=== PATIENT | male | born 1950 | race African-American/Black ===

== ENCOUNTER 2019-05-05 05:16 | Day surgery (SDC) ==
[2019-04-29 13:09] LABS: HEMATOCRIT 47.7 % (42.0-52.0); HEMOGLOBIN 15.5 g/dL (14.0-18.0); MCH 30.5 PG (27-31); MCHC 32.5 g/dL (33-37); MCV 93.7 FL (81-99); MPV 9.4 FL (7.4-10.4); RBC 5.09 XMIL (4.7-6.1); RDW 13.8 % (11.5-14.5); WBC 5.62 X1000 (4.8-10.8)
[2019-04-29 13:24] LABS: AGAP 13; BUN 7 mg/dL (8-22); CALCIUM 10.2 mg/dL (8.8-10.2); CHLORIDE 99 mmol/L (98-107); COSMO 277; CREATININE 0.8 mg/dL (0.7-1.2); ESTIMATED GFR > 60; GLUCOSE 128 mg/dL (70-104); POTASSIUM 4.2 mmol/L (3.5-5.1); SODIUM 139 mmol/L (136-145); TCO2 27 mmol/L (25-35)
[2019-05-05] MEDS ORDERED: KEFZOL 1 GM/D5W 2 GM/100 ML IVPB ONE (05:59)
[2019-05-05] MEDS ORDERED: LR 1,000 ML ONE ×2 (05:59→06:30)
[2019-05-05] MEDS ORDERED: PEPCID ONE (05:59)
[2019-05-05] MEDS ORDERED: REGLAN ONE (05:59)
[2019-05-05] MEDS ORDERED: B & O 15A SUPP ONE (06:30)
[2019-05-05] MEDS ORDERED: DIPRIVAN 1% ONE (06:30)
[2019-05-05] MEDS ORDERED: MARCAINE 0.25% PF/EPI 1:200,000 ONE (06:30)
[2019-05-05] MEDS ORDERED: ROBINUL ONE ×4 (06:31→11:09)
[2019-05-05] MEDS ORDERED: XYLOCAINE-MPF 2% ONE (06:31)
[2019-05-05] MEDS ORDERED: QUELICIN (DOSE) ONE (06:31)
[2019-05-05] MEDS ORDERED: VENTOLIN HFA ONE (06:55)
[2019-05-05] MEDS ORDERED: NORCURON ONE ×2 (06:58→08:31)
[2019-05-05] MEDS ORDERED: TORADOL ONE (07:00)
[2019-05-05] MEDS ORDERED: DECADRON ONE (07:00)
[2019-05-05] MEDS ORDERED: OFIRMEV 1000 MG/ISOTONIC SOLN 1,000 MG/100 ML BOTTLE ONE (07:00)
[2019-05-05] MEDS ORDERED: ZOFRAN ONE (07:00)
[2019-05-05] MEDS ORDERED: FENTANYL ONE (07:43)
[2019-05-05] MEDS ORDERED: NEOSTIGMINE ONE (08:43)
[2019-05-05 11:45] LABS: URINE SOURCE CATH
[2019-05-05] MEDS ORDERED: DUONEB (A & A) INH ONE (11:49)
[2019-05-05] MEDS: DILAUDID ONE ×3 (11:57→18:12)
[2019-05-05 11:59] LABS: BILIRUBIN URINE NEGATIVE (NEGATIVE); BLOOD URINE TRACE (NEGATIVE); COLOR YELLOW; GLUCOSE URINE NEGATIVE (NEGATIVE); KETONE URINE NEGATIVE (NEGATIVE); LEUKOCYTES URINE NEGATIVE (NEGATIVE); NITRITE URINE NEGATIVE (NEGATIVE); PROTEIN URINE NEGATIVE (NEGATIVE); SP GRAVITY URINE 1.016; TURBIDITY URINE CLEAR (CLEAR); UROBILINOGEN URINE NORMAL (NORMAL)
[2019-05-05 12:00] LABS: UR EPITHELIAL CELLS <10 /HPF (<10); URINE BACTERIA NEGATIVE /HPF; URINE RBC <10 /HPF (<10); URINE WBC <10 /HPF (<10)
[2019-05-05] MEDS ORDERED: SODIUM CHLORIDE 0.9% INJ PRN (13:15)
[2019-05-05] MEDS ORDERED: PHENERGAN IV PRN (13:15)
[2019-05-05] MEDS ORDERED: LABETALOL IV PRN (13:15)
[2019-05-05] MEDS ORDERED: OXY IR PO PRN (13:15)
[2019-05-05] MEDS ORDERED: DITROPAN PO PRN (13:15)
[2019-05-05] MEDS ORDERED: BENADRYL LIQUID PO PRN (13:15)
[2019-05-05] MEDS ORDERED: LR 1,000 ML IV SCH (13:15)
[2019-05-05] MEDS ORDERED: OFIRMEV 1000 MG/ISOTONIC SOLN 1,000 MG/100 ML BOTTLE IV PRN (14:00)
[2019-05-05] MEDS: OXY IR PO PRN (14:31)
[2019-05-05] MEDS: KEFZOL 1 GM/D5W 1 GM/50 ML IVPB IV SCH ×2 (14:32→22:04)
[2019-05-05] MEDS: MORPHINE IV PRN ×2 (17:46→22:02)
[2019-05-05] MEDS: PEPCID PO SCH (22:04)
[2019-05-05] MEDS: COLACE PO SCH ×2 (22:04→22:17)
[2019-05-05] MEDS: PERIDEX MT SCH (22:16)
[2019-05-06] MEDS: MORPHINE IV PRN ×2 (01:45→04:17)
[2019-05-06] MEDS: OXY IR PO PRN (03:06)
[2019-05-06] MEDS: KEFZOL 1 GM/D5W 1 GM/50 ML IVPB IV SCH (05:52)
[2019-05-06 06:33] LABS: HEMATOCRIT 41.3 % (42.0-52.0); HEMOGLOBIN 13.4 g/dL (14.0-18.0); MCH 30.8 PG (27-31); MCHC 32.4 g/dL (33-37); MCV 94.9 FL (81-99); MPV 9.5 FL (7.4-10.4); RBC 4.35 XMIL (4.7-6.1); RDW 13.9 % (11.5-14.5); WBC 8.9 X1000 (4.8-10.8)
[2019-05-06 07:06] LABS: AGAP 13; BUN 7 mg/dL (8-22); CALCIUM 9.3 mg/dL (8.8-10.2); CHLORIDE 102 mmol/L (98-107); COSMO 276; CREATININE 0.8 mg/dL (0.7-1.2); ESTIMATED GFR > 60; GLUCOSE 141 mg/dL (70-104); POTASSIUM 4.8 mmol/L (3.5-5.1); SODIUM 138 mmol/L (136-145); TCO2 23 mmol/L (25-35)
[2019-05-06] MEDS ORDERED: NON-FORMULARY MED (Fluticasone/Umeclidin/Vilanter [Trelegy Ellipta 100-62.5-25] 0 EA) INH SCH (07:30)
[2019-05-06 07:32] VITALS: BP 144/61
[2019-05-06] MEDS: PEPCID PO SCH (08:34)
[2019-05-06] MEDS: PERIDEX MT SCH (08:35)
[2019-05-06] MEDS ORDERED: VITAMIN D PO SCH (09:00)
[2019-05-06] MEDS ORDERED: LIPITOR PO SCH (21:00)
--- NOTE | 2019-05-07 12:12 | OPERATIVE NOTE ---
PROCEDURE DATE: 05/05/2019 SURGEON: Nadeem Rosales MD PREOPERATIVE DIAGNOSIS: Prostate cancer with a PSA of 17 and 4 cores with Jordan 3 + 4. POSTOPERATIVE DIAGNOSIS: Prostate cancer with a PSA of 17 and 4 cores with Jordan 3 + 4. PROCEDURE PERFORMED: Laparoscopic robot-assisted radical retropubic prostatectomy and bilateral pelvic lymph node dissection. ANESTHESIA: General endotracheal. FINDINGS: Normal-appearing prostate with very large median and lateral lobes. Normal-appearing seminal vesicles and ampulla vas deferens. Bilateral pelvic nodes appeared normal. INDICATION FOR PROCEDURES: This 69-year-old male was noted to have an elevated PSA to 17. Prostate ultrasound and biopsies revealed adenocarcinoma, Jordan grade 3 + 3 in 6 of 12 cores and Tavernier 3 + 4 in 4 of the cores. He has decided on radical surgery. DESCRIPTION OF PROCEDURE: After informed consent was obtained from the patient, him receiving IV antibiotics, he was taken to the main OR, and placed in the supine position. General anesthesia via endotracheal tube was achieved. He was then placed in the low lithotomy position and prepped and draped in the usual sterile fashion for abdominal, penile and perineal surgery. An 18-Czech Oreilly catheter was then passed through the patient's urethra, prostate, and in the bladder. The Oreilly was then placed to gravity drain. Pneumoperitoneum was achieved with the Veress needle placed through the umbilicus. The pneumoperitoneum was taken to 15 cm of water. A small incision was made just above the umbilicus, and a 12 mm port was placed using the Visiport. The robot trocars were placed in the standard position with the #4 arm just above the right anterior superior iliac spine, and the creative assistant port which was 12 mm in the left epigastric area. After the robot trocars were placed, the patient was placed in steep Trendelenburg, and the table lowered all the way. The robot was docked. The procedure was started by taking down physiologic adhesions from the left colon. The 4th arm was then used to retract the rectum cephalad. An incision was made in the peritoneum just above the rectum. This was taken back to the seminal vesicles and vas deferens. These were bluntly and sharply dissected free. The vas deferens was incised with the electrocautery. The pedicles to the seminal vesicles were taken down with clips. The seminal vesicles was dissected free all the way back to the base of the prostate. Both sides were accomplished similarly. Denonvilliers fascia was opened in the midline and dissected laterally for a short distance. Attention was then turned to the anterior abdominal wall where an incision was made in the peritoneum just medial to the internal inguinal ring. This was taken down to the vas deferens. It was extended up onto the anterior abdominal wall. The left side was accomplished similarly. The medial umbilical ligaments were taken down with the electrocautery. The median umbilical ligament was taken down with electrocautery and the bladder dropped off the anterior wall. The endopelvic fascia was exposed. It was entered lateral to the prostate. The incision was taken back to the base of the prostate and up to the puboprostatic ligaments which were taken down sharply. The levator ani muscles were pushed off the sides of the prostate. Both sides were accomplished similarly. The dorsal vein complex was taken down using a 2-0 V-Loc suture. The suture was passed under the dorsal vein complex, and then through the eye of the suture and pulled tight, it was passed back under the dorsal vein complex, then through the periosteum of the pubis, and back under the dorsal vein complex, and back through the periosteum of the pubis. The lymph node dissection was then performed. The limits of the node dissection was the medial side of the external iliac vein. The inferior part was the obturator nerve. The most distal part of the dissection was the node of [place], and the most proximal was the bifurcation of the external and internal iliac veins. Lymphostasis and hemostasis was achieved with electrocautery and clips. Both sides were accomplished similarly. The fossa was packed with Surgicel on each side. Attention was then turned to the bladder neck where the bladder was dissected off of the base of the prostate with the electrocautery. The bladder was entered and the Oreilly catheter was brought out through the cystotomy and used as a traction device. It was noted the patient had very large lateral lobes and a large median lobe. The Oreilly catheter was then removed, and the grasping forceps were used to grab the median and lateral lobes and used as a traction device. The posterior bladder neck was incised and the bladder was completely dissected off the base of the prostate. The previously dissected space where the seminal vesicles and vas deferens were located was entered. The vas deferens and seminal vesicles were pulled up through this incision. The pedicles were taken down with clips, and the neurovascular bundle was sharply dissected off the sides of the prostate all the way to the apex. Both sides were accomplished similarly. The prostate was minimally adhered to the rectum, and dissected back to the apex. Attention was then turned to the to the apex of the prostate where the dorsal vein complex was cauterized over the apex and incised. The urethra was exposed. The Oreilly catheter was pulled back, and the urethra incised. The posterior rhabdosphincter fibers were incised and the prostate with attached seminal vesicles and vas deferens were placed in an EndoCatch retrieval bag. The lymph node had been previously passed out of the body. The vesicovisceral fascia was reattached to the posterior rhabdosphincter with a running suture of 3-0 V-Loc suture. The bladder neck was large, and it was reduced in size by placing a [id number] 2-0 Vicryl at the 3:00 and 9:00 positions. The bladder was then anastomosed to the urethra with a running suture of 3-0 V-Loc. The bladder neck and urethra was suspended using the 3-0 V-Loc suture that had anastomose the vesicovisceral fascia to the posterior rhabdosphincter by passing it through the periosteum of the pubic bone. Both sides were accomplished similarly. He tolerated the procedure well. Estimated blood loss 100 mL. The EndoCatch retrieval bag string was brought from the creative assistant port out through the camera port. Pneumoperitoneum was resolved. The robot trocars were removed. The robot trocars were removed after removing the robot. The table was returned to the supine position. The camera port incision was extended for a distance of about 4 cm. The prostate was brought out of the body in the EndoCatch retrieval bag. The abdominal rectus fascia at the camera port was reapproximated with interrupted sutures of #1 Maxon. The knots were buried by closing the subcutaneous tissue with interrupted sutures of 3-0 Vicryl. The skin was reapproximated with clips. Island dressings were placed. He tolerated the procedure well. Again, estimated blood loss 100 mL. He was extubated and taken to the recovery room in good condition. cc: Nadeem Rosales MD
--- NOTE | 2019-05-08 11:07 | PROGRESS NOTE ---
DATE: 05/06/2019 SUBJECTIVE: Mr. Pedersen had a good night overnight. He reports adequate pain control. He denies nausea/vomiting. OBJECTIVE: T 98.6 degrees, P 60, BP 144/61. General: No acute distress. Abdomen: Soft, appropriately tender. Nondistended. Incisions appear to be all clean, dry, and intact with dressings over the incisions noted. Genitourinary: Oreilly catheter is draining straw-colored urine. URINE OUTPUT: Recorded in the amount of 3950 mL. PERTINENT LABORATORY DATA: White count of 9000, hematocrit 41. Creatinine is 0.8. ASSESSMENT: A 69-year-old male, postoperative day 1 status post robotic-assisted laparoscopic prostatectomy with bilateral pelvic lymph node dissection who is doing well. He was educated on postoperative care. We discussed using [place] for pain and Ditropan for bladder spasm and Keflex around the time of Oreilly catheter removal. Side effects of medications were explained. PLAN: 1. Discharge home with leg bag and large bag. 2. He will follow up with Dr. Rosales on 05/13/2019 for Oreilly catheter removal and pathology discussion. cc: MD Nadeem Simpson MD
== END 2019-05-06 09:15 | disposition home or self-care (01) ==
LOC: OPS 05:16 → PAT 05:16 → 4N 05:16 → OPS 05-06 09:15
PROVIDERS: ATTEND Urology
CPT/HCPCS: 80048; 81001; 85027; 88307; 88309; 88313; A9270; J0131; J0330; J0690; J1100; J1170; J1885; J2270; J2405; J2550; J3010; J7120; S2900